=== PATIENT | female | born 1945 | race Caucasian/White ===

== ENCOUNTER → 2018-01-29 | Outpatient (CLI) | payer OTHER ==
[~2018-01-29] MED LIST: ASPI81TA28 PO; CHOL1TAB42 PO; CLB/200 PO; CZR50 PO; ROSU5TAB PO
[2018-01-29 10:40] LABS: BASO % 0.2 %; BASO ABS # 0.01 K/uL (0-0.2); EOS % 2.8 %; EOS ABS # 0.16 K/uL (0-0.5); HEMOGLOBIN 13.7 g/dL (12.0-16.0); IG# 0.01 K/uL (0.00-0.02); LYMPH % 34.8 %; MEAN CELL VOLUME 90.1 fL (80-100); MEAN CORPUSCULAR HEMOGLOBIN 30.1 pg (25-34); MEAN CORPUSCULAR HGB CONC 33.4 g/dl (32-36); MONO % 8.2 %; MONO ABS # 0.47 K/uL (0.11-0.59); NEUT % 53.8 %; PLATELET COUNT 298 K/uL (130-400); RED CELL DISTRIBUTION WIDTH CV 13.7 % (11.5-14.5); RED CELL DISTRIBUTION WIDTH SD 44.5 fL (36.4-46.3); WHITE BLOOD COUNT 5.75 K/uL (4.8-10.8)
[2018-01-29 10:45] LABS: INR 0.9 (0.9-1.1); PTT PATIENT 24.2 SECONDS (21.0-31.0)
--- NOTE | 2018-01-29 10:58 | DIAGNOSTIC IMAGING REPORT ---
CHEST 2 VIEWS ROUTINE CLINICAL HISTORY: Preoperative evaluation. COMPARISON STUDY: No previous studies for comparison. FINDINGS: Lung volumes are normal. No pneumothorax or pleural effusion is present. There is no consolidation or evidence for pulmonary edema. There is mild cardiomegaly without evidence for pulmonary edema. There is a possible hiatal hernia. IMPRESSION: 1. No acute cardiopulmonary findings. 2. Mild cardiomegaly. Electronically signed by: Reuben Payne M.D. 01/29/2018 10:56 AM Dictated Date/Time: 01/29/2018 10:55 AM
[2018-01-29 11:27] LABS: HEMOGLOBIN A1C 5.7 % (4.5-5.6)
[2018-01-29 13:16] LABS: ALBUMIN 3.4 gm/dl (3.4-5.0); BLOOD UREA NITROGEN 18 mg/dl (7-18); CALCIUM 8.8 mg/dl (8.5-10.1); CARBON DIOXIDE 25 mmol/L (21-32); CREATININE 0.68 mg/dl (0.60-1.20); GLUCOSE 90 mg/dl (70-99); SODIUM 142 mmol/L (136-145)
== END | disposition home or self-care (01) ==
LOC: C.CPL 09:42
PROVIDERS: ATTEND Orthopaedic Surgery
DX: Z01.812 Encounter for preprocedural laboratory examination (principal); Z01.818 Encounter for other preprocedural examination; Z01.810 Encounter for preprocedural cardiovascular examination